=== PATIENT | female | born 1945 | race Caucasian/White ===

== ENCOUNTER → 2016-11-27 | Outpatient (CLI) | payer OTHER ==
[~2016-11-27] MED LIST: ACET-1138 PO; ALUM-30 PO; ASPEC325 PO; ATOR-22 PO; FRRG PO; GLC/500 PO; LISI-787 PO; MECL1TAB42 PO; OMEG10007 PO; ULT50X PO
[2016-11-27 13:38] LABS: ESTIMATED AVERAGE GLUCOSE 126 mg/dl; HA1C FLAG Normal (Normal)
[2016-11-27 14:02] LABS: ALT/SGPT 33 U/L (12-78); BLOOD UREA NITROGEN 24 mg/dl (7-18); BUN/CREATININE RATIO 21.6 (10-20); CARBON DIOXIDE 26 mmol/L (21-32); CHLORIDE 104 mmol/L (98-107); CHOLESTEROL 145 mg/dl (0-200); GLUCOSE 97 mg/dl (70-99); POTASSIUM 4.8 mmol/L (3.5-5.1); SODIUM 137 mmol/L (136-145); TRIGLYCERIDES 140 mg/dl (0-150); VERY LOW DENSITY LIPOPROT CALC 28 mg/dl
[2016-11-27 14:05] LABS: ALB/GLOB RATIO 1.2 (0.9-2); ALKALINE PHOSPHATASE 91 U/L (45-117); AST/SGOT 22 U/L (15-37); CHOLESTEROL/HDL RATIO 2.7; HDL CHOLESTEROL 53 mg/dl; LDL CHOLESTEROL CALCULATED 64 mg/dl
[2016-11-27 14:21] LABS: CALCIUM 9.6 mg/dl (8.5-10.1)
== END | disposition home or self-care (01) ==
LOC: C.LABBFT 09:08
PROVIDERS: ATTEND Nurse Practitioner
DX: E78.00 Pure hypercholesterolemia, unspecified (principal); R73.01 Impaired fasting glucose

== ENCOUNTER → 2016-11-29 | Outpatient (CLI) | payer OTHER | END | disposition home or self-care (01) | LOC: C.LABBFT 09:44 | PROVIDERS: ATTEND Nurse Practitioner | DX: R73.01 Impaired fasting glucose (principal) ==

== ENCOUNTER → 2017-11-05 | Outpatient (CLI) | payer OTHER | END | disposition home or self-care (01) | LOC: C.LABBFT 10:20 | PROVIDERS: ATTEND Physician Assistant Medical | DX: M17.10 Unilateral primary osteoarthritis, unspecified knee (principal) ==

== ENCOUNTER → 2017-11-12 | Outpatient (CLI) | payer OTHER ==
[2017-11-12 17:39] LABS: BLOOD UREA NITROGEN 23 mg/dl (7-18); CALCIUM 9.4 mg/dl (8.5-10.1); CARBON DIOXIDE 27 mmol/L (21-32); CREATININE 1.11 mg/dl (0.60-1.20); GLUCOSE 121 mg/dl (70-99); POTASSIUM 4.6 mmol/L (3.5-5.1); SODIUM 136 mmol/L (136-145)
== END | disposition home or self-care (01) ==
LOC: C.LABBFT 14:43
PROVIDERS: ATTEND Physician Assistant Medical
DX: I10 Essential (primary) hypertension (principal); M25.549 Pain in joints of unspecified hand